=== PATIENT | male | born 1990 | race Caucasian/White ===

== ENCOUNTER 2017-01-04 16:00 | Emergency (ER) | payer BC ==
[2017-01-04 16:31] VITALS: BP 164/95; PULSE 96; RESP 20; TEMP 98.2; O2SAT 99
--- NOTE | 2017-01-04 17:04 | UCPHY ---
H & P Patient Type: New Chief Complaint Nursing Narrative: pt describes large fluid filled sacs in his anal area (internal hemorrhoids?) that are blocking his ability to have a stool. (unable to have BM x 3 days) Time Seen by Provider: 01/04/17 17:00 HPI/ROS: CHIEF COMPLAINT: Hemorrhoid HISTORY OF PRESENT ILLNESS: Patient is a 26-year-old man who comes to the emergency department complaining of hemorrhoids. He states that he has "fluid- filled sacs in his rectum that are preventing him from having a bowel movement" he first noticed this 3 days ago. He has had a small amount of blood in his stool. No significant pain itching or burning. REVIEW OF SYSTEMS: Constitutional: denies: chills, fever, recent illness, recent injury EENTM: denies: blurred vision, double vision, nose congestion Respiratory: denies: cough, shortness of breath Cardiac: denies: chest pain, irregular heart rate, lightheadedness, palpitations Gastrointestinal/Abdominal: See HPI denies: abdominal pain, diarrhea, nausea, vomiting, blood streaked stools Genitourinary: denies: dysuria, frequency, hematuria, pain Musculoskeletal: denies: joint pain, muscle pain Skin: denies: lesions, rash, jaundice, bruising Neurological: denies: headache, numbness, paresthesia, tingling, dizziness, weakness Hematologic/Lymphatic: denies: blood clots, easy bleeding, easy bruising Immunologic/allergic: denies: HIV/AIDS, transplant EXAM: GENERAL: Well-appearing, well-nourished and in no acute distress. HEAD: Atraumatic, normocephalic. EYES: Pupils equal round and reactive to light, extraocular movements intact, sclera anicteric, conjunctiva are normal. ENT: TMs normal, nares patent, oropharynx clear without exudates. Moist mucous membranes. NECK: Normal range of motion, supple without lymphadenopathy or JVD. LUNGS: Breath sounds clear to auscultation bilaterally and equal. No wheezes rales or rhonchi. HEART: Regular rate and rhythm without murmurs, rubs or gallops. ABDOMEN: Soft, nontender, normoactive bowel sounds. No guarding, no rebound. No masses appreciated. : The patient has the internal hemorrhoid seen on anus scope. Nonbloody BACK: No CVA tenderness, no spinal tenderness, step-offs or deformities EXTREMITIES: Normal range of motion, no pitting or edema. No clubbing or cyanosis. NEUROLOGICAL: Cranial nerves II through XII grossly intact. Normal speech, normal gait. 5/5 strength, normal movement in all extremities, normal sensation PSYCH: Normal mood, normal affect. SKIN: Warm, dry, normal turgor, no visible rashes or lesions. Source: Patient Exam Limitations: No limitations - Personal History Current Tetanus Diphtheria and Acellular Pertussis (TDAP): Yes - Medical/Surgical History Hx Asthma: Yes Hx Chronic Respiratory Disease: No Hx Diabetes: No Hx Cardiac Disease: No Hx Renal Disease: No Hx Cirrhosis: No Hx Alcoholism: No Hx HIV/AIDS: No Hx Splenectomy or Spleen Trauma: No Other PMH: childhood asthma - Family History Significant Family History: Hypertension - Social History Smoking Status: Current every day smoker Alcohol Use: None Drug Use: None Constitutional: Initial Vital Signs Temperature (C) 36.8 C 01/04/17 16:29 Heart Rate 96 01/04/17 16:29 Respiratory Rate 20 01/04/17 16:29 Blood Pressure 164/95 H 01/04/17 16:29 O2 Sat (%) 99 01/04/17 16:29 O2 Delivery Mode Room Air Allergies/Adverse Reactions: No Known Allergies Allergy (Unverified 01/04/17 16:28) Home Medications: Medication Instructions Recorded NK [No Known Home Meds] 01/04/17 Medical Decision Making ED Course/Re-evaluation: Patient has internal hemorrhoids nonthrombosed. I will treat him with in preparation H suppositories and MiraLax. He is happy with this plan and declines further workup or testing at this time. Differential Diagnosis: Partial list of the Differential diagnosis considered include but were not limited to; hemorrhoid, thrombosed hemorrhoid, cancer, and although unlikely based on the history and physical exam, I also considered abscess, volvulus, intussusception, prolapse. I discussed these differential diagnoses and the plan with the patient as well as the usual and expected course. The patient understands that the diagnosis is provisional and that in medicine we are not always correct and that further workup is often warranted. Usual and customary warnings were given. All of the patient's questions were answered. The patient was instructed to return to the emergency department should the symptoms at all worsen or return, otherwise to followup with the physician as we discussed. Departure - Departure Disposition: Home, Routine, Self-Care Clinical Impression: Internal hemorrhoid Condition: Fair Instructions: Hemorrhoids (ED) Additional Instructions: Use MiraLax as we discussed as well as preparation H suppositories. Follow up with her primary care doctor within the next week for re-evaluation. Referrals: Victoria Cantu MD [Medical Doctor] - As per Instructions - PQRS PQRS Measurement: Not applicable
== END 2017-01-04 17:25 | disposition home or self-care (01) ==
LOC: CED 16:00
DX: K64.8 Other hemorrhoids (principal)
CPT/HCPCS: G0463-PO